=== PATIENT | female | born 1985 | race African-American/Black ===

== ENCOUNTER 2018-08-11 19:18 | Emergency (ER) | payer MEDICAID ==
--- NOTE | 2018-08-11 20:49 | RADIOLOGY REPORT (SQ) ---
EXAM DESCRIPTION: HAND RIGHT 3 VIEWS COMPLETED DATE/TIME: 08/11/2018 8:22 pm REASON FOR STUDY: Hand pain x 1 week COMPARISON: None. EXAM PARAMETERS: NUMBER OF VIEWS: Three views. TECHNIQUE: AP, lateral and oblique radiographic images acquired of the right hand. LIMITATIONS: None. FINDINGS: MINERALIZATION: Normal. BONES: No acute fracture or dislocation. No worrisome bone lesions. JOINTS: No effusions. SOFT TISSUES: No soft tissue swelling. No foreign body. OTHER: No other significant finding. IMPRESSION: NEGATIVE STUDY OF THE RIGHT HAND. NO RADIOGRAPHIC EVIDENCE OF ACUTE INJURY. TECHNICAL DOCUMENTATION: JOB ID: [id number] [email or web address] All Rights Reserved Reading location - IP/workstation name: [email or web address]
[2018-08-11] MEDS ORDERED: NAPROXEN 250 MG TABLET PO ONE (21:30)
--- NOTE | 2018-08-11 21:34 | ER Document Report ---
ED Hand/Wrist Injury - General Chief Complaint: R hand pain/ swelling Stated Complaint: HAND PAIN Time Seen by Provider: 08/11/18 21:14 TRAVEL OUTSIDE OF THE [place] IN LAST 30 DAYS: No - HPI Notes: Patient is a 33-year-old female that presents to the emergency department for chief complaint of right hand pain. Patient reports at work she has a repetitive motion with her right hand. Over the last week she has had increased pain over the back of her right hand. She denies any direct trauma or injury. The pain is an aching pain that radiates up her forearm. She states it is worse with movement and relieved slightly with rest. She took an ibuprofen 800 mg at home with some improvement. She denies any fevers or chills. Past Medical History: Reviewed in chart Past Surgical History: Negative Social History: Reviewed in chart Family History: Reviewed and noncontributory for presenting illness Allergies: Reviewed, see documented allergy list. REVIEW OF SYSTEMS: CONSTITUTIONAL : No fever No chills No diaphoresis No recent illness EENT: No vision changes No congestion No sore throat CARDIOVASCULAR: No chest pain No palpitations RESPIRATORY: No shortness of breath No cough No difficulty breathing GASTROINTESTINAL: No abdominal pain No nausea No vomiting No diarrhea GENITOURINARY: No dysuria No hematuria No difficulty urinating MUSCULOSKELETAL: No back pain No leg pain Right hand pain SKIN: No rashes No lesions LYMPHATIC: No swollen, enlarged glands. NEUROLOGICAL: No lightheadedness No headache No weakness No paresthesias PSYCHIATRIC: No anxiety No depression PHYSICAL EXAMINATION: Vital signs reviewed, nursing noted reviewed. GENERAL: Well-appearing, well-nourished and in no acute distress. HEAD: Atraumatic, normocephalic. EYES: Eyes appear normal, extraocular movements intact, sclera anicteric, conjunctiva are normal. ENT: nares patent, oropharynx clear without exudates. Moist mucous membranes. NECK: Normal range of motion, supple without lymphadenopathy LUNGS: Breath sounds clear to auscultation bilaterally and equal. No wheezes rales or rhonchi. HEART: Regular rate and rhythm without murmurs ABDOMEN: Soft, nontender, normoactive bowel sounds. No rebound, guarding, or rigidity. No masses appreciated. EXTREMITIES: Normal right hand, wrist, and forearm exam including normal range of motion and no focal tenderness, good range of motion, no pitting or edema. NEUROLOGICAL: No focal neurological deficits. Moves all extremities spontaneously Motor and sensory grossly intact on exam. PSYCH: Normal mood, normal affect. SKIN: Warm, Dry, normal turgor, no rashes or lesions noted on exposed skin - Related Data Allergies/Adverse Reactions: halothane Allergy (Verified 08/11/18 19:27) succinylcholine Allergy (Verified 08/11/18 19:27) Past Medical History - Social History Smoking Status: Current Every Day Smoker Chew tobacco use (# tins/day): No Frequency of alcohol use: Occasional Drug Abuse: None Family History: Reviewed & Not Pertinent Patient has suicidal ideation: No Patient has homicidal ideation: No Renal/ Medical History: Denies: Hx Peritoneal Dialysis Review of Systems - Review of Systems Notes: Dictated Physical Exam - Vital signs Vitals: Temp Pulse Resp BP Pulse Ox 99.0 F 80 16 149/97 H 100 08/11/18 19:30 08/11/18 19:30 08/11/18 19:30 08/11/18 19:30 08/11/18 19:30 - Notes Notes: Dictated Course - Re-evaluation Re-evalutation: 08/11/18 21:32 Vitals reviewed. Nursing notes reviewed. Patient given naproxen for pain. X- ray shows no acute injury. Patient symptoms likely related to her repetitive motion. She was offered time off of work but declined. She was counseled on rest, ice, and elevation. She will follow with her primary care for reevaluation in 1 week if not improving. Discharged in stable condition. Hand X-Ray 08/11/18 00:00 IMPRESSION: NEGATIVE STUDY OF THE RIGHT HAND. NO RADIOGRAPHIC EVIDENCE OF ACUTE INJURY. - Vital Signs Vital signs: Temp Pulse Resp BP Pulse Ox 99.0 F 80 16 149/97 H 100 08/11/18 19:30 08/11/18 19:30 08/11/18 19:30 08/11/18 19:30 08/11/18 19:30 Discharge - Discharge Clinical Impression: Right hand pain Condition: Stable Disposition: HOME, SELF-CARE Instructions: Arm Pain, Nonspecific ([facility]) Additional Instructions: Please return to the emergency department if you have any worsening, or concern of your symptoms. Please return to the emergency department if you develop chest pain, difficulty breathing, severe abdominal pain, or ongoing vomiting. Please follow-up with your primary care physician in 2-3 days and any other recommended physicians. If prescribed, take all medications as directed. If you have any questions or concerns do not hesitate to return the emergency department for evaluation. [] Referrals: KEILA WARREN MD [Primary Care Provider] - Follow up in 1 week
[2018-08-11 21:54] VITALS: BP 144/85
== END 2018-08-11 21:54 | disposition home or self-care (01) ==
LOC: ER 19:18
DX: M79.641 Pain in right hand (principal); F17.200 Nicotine dependence, unspecified, uncomplicated; Z88.8 Allergy status to other drugs, medicaments and biological substances
CPT/HCPCS: 99283; 73130; J3490